=== PATIENT | female | born 1985 | race Two or more races ===

== ENCOUNTER → 2025-07-10 | Outpatient (CLI) | payer BC, SELFPAY ==
--- NOTE | 2025-07-10 16:44 | XR_ITS ---
Examination: Sacrum partially 3 views Technique: AP, inclined AP, lateral sacrum and coccyx 3 views Date and time: July 10, 2025, 1704 hrs. Indications: Low back pain syncopal pain beginning one year ago. Findings: Mild bilateral sacroiliitis. Symmetrical sacral foramina Satisfactory alignment sacrococcygeal segments on the lateral view with no fracture Impression: Mild bilateral sacroiliitis
--- NOTE | 2025-07-10 16:44 | XR_ITS ---
Examination: Lumbar spine, 5 views Technique: Lumbar spine AP, lateral, coned lateral lower lumbar spine, bilateral obliques 5 views Exam date and time: July 10, 2025, 1655 hrs. Indications: Low back pain beginning one year ago. Findings: Mild osteopenia. Satisfactory alignment lumbar vertebral bodies on the lateral view No lumbar fracture No spondylolisthesis Mild disc narrowing L5-S1 Impression: No lumbar fracture Mild disc narrowing L5-S1
== END | disposition home or self-care (01) ==
DX: M48.07 Spinal stenosis, lumbosacral region (principal); M46.1 Sacroiliitis, not elsewhere classified
CPT/HCPCS: 72110; 72220